=== PATIENT | female | born 1965 | race Caucasian/White ===

== ENCOUNTER 2018-08-02 05:45 | Inpatient (IN) | payer BC ==
--- NOTE | 2018-07-20 16:25 | HP ---
HISTORY AND PHYSICAL: DATE OF ADMISSION/SURGERY: 08/02/18 DATE OF OFFICE VISIT: 07/20/18 SURGEON: Monique Veras MD * (DICTATED BY JOJO GARCIA) PROCEDURE: Left total hip arthroplasty. CHIEF COMPLAINT: Left hip pain. HISTORY OF PRESENT ILLNESS: Ms. Medina is a 53-year-old female with end-stage osteoarthritis of the left hip. She has failed conservative treatment and elected to proceed with a left total hip arthroplasty. PAST MEDICAL HISTORY: Denies. PAST SURGICAL HISTORY: Hysterectomy and wisdom teeth extraction. CURRENT MEDICATIONS: 1. Tylenol as needed. 2. Venlafaxine 37.5 mg 2 capsules a day. 3. Multivitamin. 4. Hair, Skin, and Nails. 5. Turmeric. 6. Vitamin D3. ALLERGIES: No known drug allergies. FAMILY HISTORY: Alzheimer's. SOCIAL HISTORY: She is a 53-year-old female. She lives with her significant other. She uses a nicotine inhaler. Denies use of drugs. Uses occasional alcohol. REVIEW OF SYSTEMS: A complete 14-point review of systems was reviewed with the patient. It was all negative or noncontributory. She denies history of DVT, PE , hepatitis, HIV, or anesthesia problems. PHYSICAL EXAMINATION GENERAL: She is well developed, well nourished, in no acute distress. VITAL SIGNS: She stands 64 inches tall, weighs 178 pounds. Her blood pressure is 124/88, her heart rate is 64. HEENT: Normocephalic, atraumatic. NECK: Supple. No palpable lymph nodes. PULMONARY: The lungs are clear to auscultation bilaterally. CARDIO: Regular rate and rhythm. Strong S1, S2. ABDOMEN: Soft, nontender, nondistended. NEUROLOGICAL: She is alert and oriented x3. MUSCULOSKELETAL: Left lower extremity: The skin is intact. There are no open wounds or abrasions. She walks with an antalgic-type gait favoring her left hip. She has decreased internal and external rotation of the left hip. She has a 2+ dorsalis pedis pulse. She is able to dorsiflex and plantar flex and has intact sensation. ASSESSMENT AND PLAN: Ms. Medina is a 53-year-old female with end-stage osteoarthritis of the left hip. She has failed conservative treatment and elected to proceed with a left total hip arthroplasty. The surgery is scheduled for 08/02/[address] Veras discussed the risks and benefits of the surgery at today's visit and all of her questions were answered. She will follow up with Dr. Veras 2 weeks after the surgery. JOJO GARCIA [id number]/[facility] #: [id number] EDUARDO
[~2018-08-02 05:45] MED LIST: Buffered Lidocaine 1% SYRIN* 1 ML/SYRINGE INTRADERM ONE; Tranexamic Acid 1,000 MG in NS 0.9% 50 ML* (outpatient use) IV SCH
[2018-08-02] MEDS ORDERED: Acetaminophen IV 1GM/100ML * 1,000 MG/100 ML VIAL IVPB ONE (06:00)
[2018-08-02] MEDS ORDERED: Dexamethasone IV* 4 MG/ML 1 ML (4 MG) IV SLOW PU ONE (06:00)
[2018-08-02] MEDS ORDERED: Lactated Ringers 1000 ML Bag* 1,000 ML IV SCH (06:00)
[2018-08-02] MEDS ORDERED: Famotidine IV* 10 MG/ML 2 ML (20 mg) IV ONE (06:00)
[2018-08-02] MEDS ORDERED: celeCOXIB CAP* 200 MG PO ONE (06:00)
[2018-08-02] MEDS ORDERED: Gabapentin CAP(*) 300 MG PO ONE (06:00)
[2018-08-02] MEDS ORDERED: celeCOXIB CAP* 100 MG ONE (06:07)
[2018-08-02] MEDS ORDERED: Gabapentin CAP(*) 300 MG ONE (06:07)
[2018-08-02] MEDS ORDERED: Buffered Lidocaine 1% SYRIN* 1 ML/SYRINGE INTRADERM ONE (06:07)
[2018-08-02] MEDS ORDERED: Dexamethasone IV* 4 MG/ML 1 ML (4 MG) ONE (06:07)
[2018-08-02] MEDS ORDERED: ceFAZolin 2 GM PREMIX in ORs 2 GM/50 ML BAG IVPB ONE (06:07)
[2018-08-02] MEDS ORDERED: Famotidine IV* 10 MG/ML 2 ML (20 mg) ONE (06:08)
[2018-08-02] MEDS ORDERED: Acetaminophen IV 1GM/100ML * 100 ML ONE (06:27)
[2018-08-02] MEDS ORDERED: Phenylephrine 10 MG/ML VIAL* 1 ML VIAL ONE (07:12)
[2018-08-02] MEDS ORDERED: Propofol* 10 MG/ML 20 ML BTL ONE (07:14)
[2018-08-02] MEDS ORDERED: Ondansetron INJ* 2 MG/ML VIAL ONE (07:14)
[2018-08-02] MEDS ORDERED: Bupivacaine 0.5% SDV PF* 30ML VIAL ONE (07:14)
[2018-08-02] MEDS ORDERED: KETAMINE HCL* 50 MG/ML 10 ML VIAL ONE (07:16)
[2018-08-02] MEDS ORDERED: Midazolam* 1 MG/ML 5 ML VIAL (5 MG) ONE ×2 (07:16→08:13)
[2018-08-02] MEDS ORDERED: fentaNYL* 50 MCG/ML 2 ML VIAL (100 MCG VIAL) ONE (07:16)
[2018-08-02] MEDS ORDERED: ROPIVACAINE 5 MG/ML 30 ML BTL (0.5%) ONE (07:20)
[2018-08-02] MEDS ORDERED: Ropivacaine (OR use only) 2 MG/ML 10 ML ONE (07:20)
[2018-08-02] MEDS ORDERED: fentaNYL* 50 MCG/ML 2 ML VIAL (100 MCG VIAL) IV PRN (09:08)
[2018-08-02] MEDS ORDERED: Naloxone* 0.4 MG/ML 1 ML VIAL IV PRN (09:08)
[2018-08-02] MEDS ORDERED: DiMENhydriNATE IV* 50 MG/ML VIAL IV PUSH PRN (09:08)
[2018-08-02] MEDS ORDERED: HYDROmorphone INJ1* 1 MG/ML SYRINGE IV PRN (09:08)
[2018-08-02] MEDS ORDERED: Ondansetron INJ* 2 MG/ML VIAL IV PRN ×2 (09:08→10:54)
[2018-08-02] MEDS ORDERED: Scopolamine 1.5 mg* PATCH TRANSDERM PRN (09:08)
[2018-08-02] MEDS ORDERED: oxyCODONE/Acetamin 5/325 MG* TAB PO PRN (10:54)
[2018-08-02] MEDS ORDERED: Morphine 4 MG/ML VIAL (1 ml) 4 MG/ML VIAL IV PRN (10:54)
[2018-08-02] MEDS ORDERED: Acetaminophen TAB* 325 MG PO PRN (10:54)
[2018-08-02] MEDS ORDERED: diPHENhydraMINE IV* 50 MG/ML 1 ml VIAL (BENADRYL) IV PRN (10:54)
[2018-08-02] MEDS ORDERED: Cyclobenzaprine TAB* 10 MG PO PRN (10:54)
[2018-08-02] MEDS ORDERED: Bisacodyl SUPP* 10 MG SUPP PR PRN (10:54)
[2018-08-02] MEDS ORDERED: Magnesium Hydroxide LIQ* 30 ML UDC PO PRN (10:54)
[2018-08-02] MEDS ORDERED: Polyethylene Glycol 3350* 17 GM PACKET PO PRN (10:54)
[2018-08-02] MEDS: oxyCODONE TAB* 5 MG TAB PO PRN ×3 (13:45→23:35)
[2018-08-02] MEDS: Lactated Ringers 1000 ML Bag* 1,000 ML IV SCH ×2 (13:46→23:06)
--- NOTE | 2018-08-02 16:24 | PN ---
Progress Note - Progress Note Date of Service: 08/02/18 SOAP: Pt was seen in her room this afternoon. She is doing quite well. Reports walking 80 ft earlier in the day. Pain is well controlled. She states that she feels very good. Denies any chest pain, SOB, nausea, vomiting. S/P LTHA
[2018-08-02] MEDS: ceFAZolin 1 GM ADVAN(*) 1 GM in NS 0.9% 50 ML* 50 ML IVPB SCH ×2 (16:44→23:36)
[2018-08-02] MEDS: oxyCODONE/Acetamin 5/325 MG* TAB PO PRN ×2 (16:44→21:44)
--- NOTE | 2018-08-02 18:16 | OP ---
Operative Report - Blank - Operative Report Date of Operation: 08/02/18 Note: EDILIA RANKIN 1965 Date Of Surgery: 08/02/18 Monique Veras MD Design Engineering Manager: Donal URIBE did help throughout the procedure with preparation of the hip, wound retraction, manipulation of the hip, and wound closure. Anesthesiologist: Alejandra Palm MD Anesthesia Type: Spinal Preoperative Diagnosis: Left severe degenerative osteoarthritis of the hip Postoperative Diagnosis: As above Procedure Performed: Left Total Hip Arthroplasty Complications: None Specimen: Femoral head and acetabular reamings sent to pathology. Hardware used: This is uncemented Cookson total hip arthroplasty hardware for the femur a size 1 accolade II with 127 neck femoral component, for the acetabulum a size 46 C trident II tritanium cluster hole shell, for the insert a size 32C poly trident x3 insert, and for the femoral head a size 32 + 0 biolox delta ceramic V40 femoral head. Brief history/Indication: EDILIA RANKIN was known in clinic and had a history of severe left hip pain. She failed conservative treatment with anti- inflammatories, pain pills, intra-articular injections and physical therapy. She elected to undergo left total hip arthroplasty due to continued pain and decreased quality of life. Radiographs showed severe end stage osteoarthritis of the hip with bone on bone contact. Informed consent was obtained from the patient. She understood the risks of surgery included but were not limited to: bleeding, infection, damage to nearby structures, intraoperative fracture, nerve palsy, failure of the hardware, early loosening, stiffness or loss of motion, dislocation, leg length discrepancy, anesthesia complications, stroke, heart attack, blood clot and . She wished to proceed. Intra-Operative findings: Intraoperatively the patient was noted to have severe loss of cartilage of the acetabulum and femoral head. Description of the Procedure: EDILIA RANKIN was identified in the preanesthesia unit. Her left hip was marked as the correct operative side. Informed consent was signed and placed in the chart. The patient was taken to the operating room and placed under anesthesia without complication. A leal catheter was placed. The patient was placed on the peg board with all bony prominences well padded. The left lower extremity was prepped and draped in the usual sterile fashion. Preoperative time-out was made to correctly identify the patient, side and site. Appropriate intraoperative antibiotics were given within one hour of incision. A standard posterior incision was made and carried sharply down to the lateral fascia. A new 10 blade was used to make an incision in the fascia in line with the skin incision. A charnley retractor was placed. The piriformis and conjoined tendons were identified and elevated off the posterolateral femur using electrocautery. These were tagged with number 5 Ethibond. Next electrocautery was used to make a posterolateral capsular flap and this was tagged with number 5 Ethibonds. The hip was carefully dislocated. Lesser trochanter to the center of the femoral head was measured at 55 mm. The oscillating saw was used to make the femoral neck cut. The femoral head was carefully removed. The femur was retracted anteriorly and the acetabular retractors were placed. Long-handled knife was used to sharply remove any remaining labrum from the acetabular rim. The acetabulum was sequentially reamed up to a size 45. A bleeding subchondral bone bed was obtained. A trial cup was placed and had excellent fit and stability. A 46C trident II tritanium cup was placed and had excellent stability with appropriate anteversion and abduction angle. A size 32 C liner was impacted into the acetabular shell. The liner was checked for stability and was stable. Next attention was turned to preparation of the femoral canal. A canal finder was used to enter the proximal femur. The femoral canal was sequentially broached up to a size 1 femoral broach trial. A trial neck and 32 + 0 trial femoral head was chosen. Lesser trochanter to center of the femoral head measurement was satisfactory. The hip was reduced and taken through a range of motion. The hip was stable in all positions with good soft tissue tension and appropriate leg lengths. The hip was dislocated and all trials were removed. The final implant chosen was a accolade II size 1 with 127 neck. This stem was impacted into the femoral canal without difficulty. The stem was stable with appropriate anteversion. The femoral head chosen was a 32 + 0 ceramic biolox head. The head was impacted onto the femoral neck without difficulty. The final lesser trochanter to center of the femoral head measurement was satisfactory. The hip was reduced and taken through a range of motion. The hip was stable in all positions with good soft tissue tension and appropriate leg lengths. The hip was copiously irrigated with sterile saline. The previously tagged capsule and tendons were repaired to the posterolateral femur through two trochanteric drill holes. The lateral fascia layer was closed using number 1 vicryls. The rest of the incision was closed in a layered fashion using 0 and 2-0 vicryls. The skin was closed using 3-0 monocryl suture and Dermabond. Sterile adaptic, 4x4s and paper tape was used to cover the incision. The patients anesthesia was reversed without difficulty. She was taken to the PACU in stable condition. Intended weight-bearing will be as tolerated with posterior hip precautions.
[2018-08-02] MEDS: Apixaban* 2.5 MG TAB PO SCH (19:34)
[2018-08-02] MEDS: Docusate CAP* 100 MG PO SCH (19:34)
[2018-08-02] MEDS: Magnesium Hydroxide LIQ* 30 ML UDC PO SCH (19:35)
[2018-08-03] MEDS: oxyCODONE/Acetamin 5/325 MG* TAB PO PRN ×3 (02:34→12:40)
[2018-08-03] MEDS: oxyCODONE TAB* 5 MG TAB PO PRN ×2 (05:31→10:48)
[2018-08-03 06:00] LABS: Hematocrit 34 % (35-47); Hemoglobin 11.4 g/dL (12.0-16.0); Mean Platelet Volume 8.2 fL (7.4-10.4); Platelet Count 291 10^3/uL (150-450)
[2018-08-03 06:20] LABS: BUN/Creatinine Ratio 16.4 (8-20); Calcium 8.6 mg/dL (8.6-10.3); EGFR African American 140.4 (>60); EGFR Non-African American 116.1 (>60); Potassium 3.6 mmol/L (3.5-5.0)
[2018-08-03] MEDS: ceFAZolin 1 GM ADVAN(*) 1 GM in NS 0.9% 50 ML* 50 ML IVPB SCH (08:07)
[2018-08-03] MEDS: Apixaban* 2.5 MG TAB PO SCH (08:09)
[2018-08-03] MEDS: Docusate CAP* 100 MG PO SCH (08:09)
[2018-08-03] MEDS: Magnesium Hydroxide LIQ* 30 ML UDC PO SCH (08:10)
[2018-08-03] MEDS ORDERED: Vitamin THERAPEUTIC TAB PO SCH (09:00)
[2018-08-03] MEDS ORDERED: Venlafaxine EXT RELEASE CAP* 75 MG PO SCH (09:00)
--- NOTE | 2018-08-03 11:15 | PN ---
Progress Note - Progress Note Date of Service: 08/03/18 SOAP: Subjective: []Pt seen at bedside. She feels very well and desires DC home. She has already met PT goals. Denies CP, SOB, dizziness, nausea. Objective: []General: Appears well, NAD LLE: Able to stand with ease to change her dressing. Left hip dressing changed, incision CDI without erythema, thigh soft, DF/PF intact, DP2+, sensation intact to light touch distally. Calves supple and nontender without erythema, edema or palpable cords Assessment: []POD 1 sp Left total hip arthroplasty Plan: []WBAT PT/OT Posterior hip precautions eliquis 2.5 mg po BID x 30 days DC home today Vital Signs Temp 97.9 F 08/03/18 07:14 Pulse 82 08/03/18 07:14 Resp 18 08/03/18 10:49 BP 114/67 08/03/18 07:14 Pulse Ox 98 08/03/18 08:00 Intake & Output 08/02/18 08/03/18 08/03/18 18:59 06:59 18:59 Intake Total 2530 2420 1955 Output Total 1850 3250 700 Balance 680 -830 1255 Intake: IV Fluids 1950 980 955 LR 1900 980 955 NS 50ML, Cefazolin 2G 50 IVPB 110 LR 110 Oral 580 1440 890 Output: Urine 0 1200 700 Chong 1850 2050 Other: # Bowel Movements 0 Laboratory Last Values Hgb 11.4 g/dL (12.0-16.0) L 08/03/18 05:48 Hct 34 % (35-47) L 08/03/18 05:48 Plt Count 291 10^3/uL (150-450) 08/03/18 05:48 MPV 8.2 fL (7.4-10.4) 08/03/18 05:48 Sodium 140 mmol/L (135-145) 08/03/18 05:48 Potassium 3.6 mmol/L (3.5-5.0) 08/03/18 05:48 Chloride 107 mmol/L (101-111) 08/03/18 05:48 Carbon Dioxide 29 mmol/L (22-32) 08/03/18 05:48 Anion Gap 4 mmol/L (2-11) 08/03/18 05:48 BUN 9 mg/dL (6-24) 08/03/18 05:48 Creatinine 0.55 mg/dL (0.51-0.95) 08/03/18 05:48 Est GFR ( Amer) 140.4 (>60) 08/03/18 05:48 Est GFR (Non-Af Amer) 116.1 (>60) 08/03/18 05:48 BUN/Creatinine Ratio 16.4 (8-20) 08/03/18 05:48 Glucose 134 mg/dL (70-100) H 08/03/18 05:48 Calcium 8.6 mg/dL (8.6-10.3) 08/03/18 05:48
--- NOTE | 2018-08-03 11:32 | DS ---
Orthopedic Discharge Summary - Discharge Summary Date of Admission:08/02/18 Date of Discharge: 08/03/18 Date of Surgery: 08/02/18 Attending Orthopedic Provider: Dr Veras Pre-operative Diagnosis: Left hip osteoarthritis Operative Procedure: left total hip arthroplasty Condition of Patient: stable History: EDILIA RANKIN is a 53 year old F with years of increasingly severe left hip pain. Patient has failed conservative management and has elected to undergo a left total hip replacement Hospital Course: EDILIA was admitted to [facility] on 08/02/18. Patient underwent a left total hip arthroplasty without complication followed by a brief recovery in PACU and transfer to the Short Stay Surgical Unit in stable condition. Our physical therapy and occupational therapy also participated in this patients care. Post-op day 1: patient was alert and in no acute distress. Dressing was changed, incision was clean, dry and intact. Operative extremity dorsiflexion and plantarflexion intact, sensation intact to light touch distally, DP2+. Patient was deemed to be medically and orthopedically stable for discharge home. Physical therapy goals were met. Home Medications Medication Instructions Recorded Confirmed Type Multivitamin Multivitamins 1 tab PO QAM 12/02/12 08/02/18 History Acetaminophen [Tylenol Arthritis] 650 mg PO DAILY PRN 07/20/18 08/02/18 History Skin,Hair And Nails 1 tab PO QAM 07/20/18 08/02/18 History Turmeric Root Extract [Turmeric] 1,053 mg PO QAM 07/20/18 08/02/18 History Venlafaxine HCl [Venlafaxine HCl 75 mg PO QAM 07/20/18 08/02/18 History ER] Acetaminophen TAB* [Tylenol TAB*] 650 mg PO Q8H PRN tab 08/03/18 Rx Apixaban* [Eliquis*] 2.5 mg PO BID 30 Days #60 tab 08/03/18 Rx Docusate CAP* [Colace Cap*] 100 mg PO BID PRN #90 cap 08/03/18 Rx oxyCODONE/Acetamin 5/325 MG* 1 tab PO Q4H PRN #0 tab MDD 10 08/03/18 Rx [Percocet 5/325 TAB*] oxyCODONE/Acetamin 5/325 MG* 2 tab PO Q4H PRN #70 tab MDD 10 08/03/18 Rx [Percocet 5/325 TAB*] Discharge Instructions following Orthopedic Surgery: Activity: * Weight Bearing as tolerated * Continue physical therapy and occupational therapy exercises as shown * Outpatient physical therapy Hip replacements: Continue Hip Precautions- do not cross legs or bend greater than 90 degrees/squat Wound care: * OK to shower on post-op day 3, no bathing, swimming, or submerging wound. * Use gentle soap, pat dry. Cover with gauze, RG wrap or tape. Call Orthopedic office for: * Increased drainage * Redness * Increased pain * Fever Go to ER with shortness of breath or chest pain. Diet: * Regular diet * Increase fluids and fiber to prevent constipation. * Continue to use stool softeners, call office if no bowel motion within 48 hours. Medications See Home Medication List in your packet for medications that you should take after discharge. DVT Prophylaxis: Eliquis Dosin.5 mg, 1 tab every 12 hours x 30 days. This medication increases bleeding tendency Pain Control: Percocet Dosin/325 mg 1-2 tabs by mouth every 4-6 hours as needed for pain. Maximum of 10 tabs per day. Hold for sedation. Wean off as soon as pain allows. Please note that Percocet contains Tylenol (acetaminophen). Maximum daily dose of Tylenol is 4000 mg from all sources. Antibiotics are required prior to any dental work. FOLLOW UP: Follow up with [Rito] Within 10-14 days, call for appointment Please call our office with any questions or concerns ([phone]) RX to [facility]
[2018-08-03 11:43] VITALS: BP 130/69
== END 2018-08-03 14:23 | disposition home or self-care (01) | DRG 301 ==
LOC: AA 05:45 → SSU 13:23
PROVIDERS: ADMIT Orthopaedic Surgery Adult Reconstructive Orthopaedic Surgery; ATTEND Orthopaedic Surgery Adult Reconstructive Orthopaedic Surgery
PROC: 0SRB04A Replacement of Left Hip Joint with Ceramic on Polyethylene Synthetic Substitute, Uncemented, Open Approach (ICD-10-PCS; principal; 2018-08-02 07:45)
DX: M16.12 Unilateral primary osteoarthritis, left hip (principal); E66.9 Obesity, unspecified; F17.210 Nicotine dependence, cigarettes, uncomplicated; B35.1 Tinea unguium; E78.00 Pure hypercholesterolemia, unspecified; Z90.710 Acquired absence of both cervix and uterus; Z82.0 Family history of epilepsy and other diseases of the nervous system; Z72.89 Other problems related to lifestyle; Z83.49 Family history of other endocrine, nutritional and metabolic diseases; Z68.31 Body mass index [BMI] 31.0-31.9, adult
CPT/HCPCS: 36415; 72170; 80048; 85014; 85018; 85049; 88304; 88311; A9270-GY; C1776; J0690; J1100; J2250; J2405; J2704; J2795; J3010; J3490